=== PATIENT | female | born 1995 | race Caucasian/White ===

== ENCOUNTER 2022-11-27 17:24 | Emergency (ER) | payer BC, SELFPAY ==
--- NOTE | ~2022-11-27 | CT_ITS ---
EXAMINATION: CT ABDOMEN AND PELVIS WITH CONTRAST CLINICAL INFORMATION: Abdominal pain. COMPARISON: Correlation made with pelvic ultrasound performed 11/27/2022 TECHNIQUE: Multidetector volumetric images were obtained from the superior aspect of the liver through the pubic symphysis following administration 85 mL of Omnipaque 350 intravenous contrast. Sagittal and coronal reformatted images were obtained on the technologist's workstation. Oral contrast: None. This CT examination was performed using dose optimization techniques as appropriate, variously including the following: *Automated exposure control *Adjustment of mA and/or kV according to patient size (this includes techniques or standardized protocols for targeted exams where dose is matched to indication/reason for exam; i.e. extremities or head) *Use of iterative reconstruction technique DLP: 332 mGy-cm FINDINGS: LUNG BASES: The visualized lung bases are unremarkable. LIVER, GALLBLADDER, AND BILIARY TREE: The liver is normal in size, shape, and attenuation. No focal hepatic lesion or biliary ductal dilatation is present. The gallbladder is unremarkable with no evidence of radiopaque gallstones, gallbladder wall thickening, or obvious pericholecystic inflammatory changes. PANCREAS: Unremarkable. SPLEEN: Unremarkable. ADRENAL GLANDS: Unremarkable. KIDNEYS AND URETERS: The kidneys are normal in size, shape, and attenuation. No hydronephrosis, hydroureter, or calculi seen. No perinephric stranding. BLADDER: Unremarkable. GASTROINTESTINAL TRACT: The small and large bowel are unremarkable. The appendix is unremarkable. ABDOMINAL WALL: No significant hernia is appreciated. LYMPH NODES: Normal. VASCULAR: Unremarkable. PELVIC VISCERA: There is a 2.9 cm low-density structure within the right adnexa. Right ovary appears to be enlarged measuring nearly 6 cm. OSSEOUS STRUCTURES: Unremarkable. CT/CT abdomen pelvis w IV con IMPRESSION: 2.9 cm low-density structure associated with the right ovary likely a cyst. The right ovary appears to be enlarged measuring nearly 6 cm in maximum diameter of uncertain significance. This was seen on ultrasound performed on the same day. Fleischner guidelines were followed.
--- NOTE | ~2022-11-27 | US_ITS ---
EXAMINATION: US PELVIS CLINICAL INFORMATION: Pelvic pain and cramping with history of ovarian cyst COMPARISON: None available. TECHNIQUE: Ultrasound of the pelvis is performed using both transabdominal and transvaginal transducers along with Doppler. Transvaginal imaging is performed due to inadequate visualization transabdominally. FINDINGS: Uterus: The uterus is retroverted and measures 6.9 x 4.1 x 4.0 cm. The double wall endometrial thickness is 7 mm. The uterus is smooth in contour and has normal myometrial echogenicity. No visible fibroid. Adnexa: Both ovaries are visualized. There is normal color flow to the adnexa. There is no ovarian torsion. There is no pelvic ascites or fluid collection. Right ovary measures 7.4 x 6.2 x 4.5 cm for a volume of 108 mL and contains a large 2.5 x 2.5 x 2.5 cm cyst. Left ovary measures 3.4 x 1.9 x 2.3 cm for a volume of 8 mL and appears unremarkable. US/US pelvic and transvaginal IMPRESSION: 1. The right ovary is significantly larger than the left and contains a 2.5 cm simple right ovarian cyst for which no follow-up is needed. 2. No evidence of ovarian torsion. 3. No other abnormality is seen.
--- NOTE | 2022-11-27 17:34 | ED_ITS ---
HPI - Abdominal Pain General Chief Complaint: Abdominal Pain Stated Complaint: Abdominal pain, back pain Time Seen by Provider: 11/27/22 17:32 History of Present Illness HPI narrative: Patient is a 27-year-old female who presents emergency department for evaluation of abdominal pain with sudden onset approximately 6 hours prior to arrival. Endorses it to feel consistent with severe menstrual cramping/labor pain and radiating to the lateral sides of the abdomen. She has trialed management with ibuprofen 800 mg, acetaminophen 1000 mg in addition to Midol without any change in her pain. Denies any history of similar pain in the past. Endorses a history of ovarian cysts but have been asymptomatic. Denies dysuria, urinary frequency/urgency/hesitancy, abnormal vaginal discharge, recent of normal vaginal bleeding, denies concern for sexually transmitted infections. Denies possibility of , last menstrual period was 2 weeks ago, she is currently in a same gender relationship, endorses a miscarriage 1 year ago as a surrogate. Denies upper abdominal pain, nausea, vomiting, diarrhea, constipation. Endorses a past history of urinary tract infection/pyelonephritis but states that this feels different. Related Data Previous Rx's Medication Instructions Recorded ketorolac 10 mg tablet 10 mg PO Q6H PRN pain 4 days #14 11/28/22 tabs morphine 15 mg immediate release 15 mg PO Q8H PRN pain #10 tabs 11/28/22 tablet Allergies Allergy/AdvReac Type Severity Reaction Status Date / Time amoxicillin Allergy Rash Verified 11/27/22 18:29 dicyclomine [From Bentyl] Allergy Hives Verified 11/27/22 18:29 Review of Systems Review of Systems Yes all other systems are reviewed and are negative [facility] Past Medical History Attestation statement: The following information was validated with the patient. Source: old records reviewed Social History Social History Advance Directives: No Advance Directives Information Provided: No Physical Exam ED Vital Signs: Vital Signs - 24 hr 11/27/22 18:37 11/27/22 19:08 11/27/22 20:49 Temperature 97.9 F 97.4 F Pulse Rate 68 78 Respiratory Rate 14 18 16 Blood Pressure 113/90 H 92/57 L Pulse Oximetry 100 100 Oxygen Delivery Method Room Air Room Air 11/28/22 00:13 11/28/22 01:26 Temperature Pulse Rate 67 76 Respiratory Rate 16 16 Blood Pressure 120/78 112/64 Pulse Oximetry 98 100 Oxygen Delivery Method Room Air Room Air BMI result Body Mass Index 20.1 Appearance: Alert.?Oriented to person, place and time. No acute distress.?Normal affect. Eyes: Pupils equal, round and reactive to light.? ENT: Pharynx normal.?? Neck: Normal inspection.? Neck supple.?? CVS: Heart sounds normal. Normal heart rate and rhythm.? Pulses normal.?? Respiratory: No respiratory distress.? Lung sounds clear to auscultation bilaterally?? Abdomen: Soft and non-tender. No rebound tenderness. No guarding. No CVA tenderness. Normoactive bowel sounds. Skin: Skin warm and dry.? Normal skin color.? Extremities: No lower extremity edema.? Neuro: Moves all extremities spontaneously. Sensation intact bilaterally. Ambulates with normal steady gait. Course Reevaluation(s) Reevaluation #1: Pelvic ultrasound revealing an enlarged right ovary with large cyst, no evidence of ovarian torsion, known ovarian cyst as per patient though she is unaware of the previous size. She continues to have severe pain 10/10. Patient received morphine IV, and CT of the abdomen and pelvis for further evaluation. Reevaluation #2: CT of the abdomen and pelvis consistent with findings from ultrasound, no additional acute abnormalities. I reviewed these findings at length with patient. Discussed plan of care for discharge home, pain management, outpatient follow-up with roustabout hand. Reviewed worrisome signs and symptoms that would warrant re-evaluation in the emergency department. All questions were answered. Time: 23:52 Medical Decision Making Medical Decision Making MDM Narrative: Patient is a 27-year-old female presenting to emergency department for evaluation of abdominal pain as per HPI. The time my examination she is overall well-appearing but does seem to do and discomfort, she is nontoxic, afebrile. Abdominal examination is benign, no CVA tenderness or lumbar region tenderness. Will obtain CBC to evaluate for leukocytosis/ anemia, CMP and lipase to evaluate for abnormal electrolytes /abnormal renal function/ abnormal hepatic/biliary function, pelvic ultrasound and Urinalysis. Differential Diagnosis Differential Diagnoses: The differential diagnosis associated with the presentation includes (Urinary tract infection, pyelonephritis, ureteral calculi, muscular strain, ovarian cyst, PID. Less likely diverticulitis, appendicitis, colitis) Admission/Observation Consideration of admission/observation: Escalation of care including admission/observation considered (See course narrative for further detail) Lab Data MDM Lab Attestation statement: I reviewed the patient's lab results. CBC is without leukocytosis, normocytic anemia not needing transfusion criteria. Overall unremarkable CMP. Urinalysis without evidence of infection or microscopic hematuria. 11/27/22 18:21 11/27/22 18:21 Labs: Lab Results 11/27/22 11/27/22 Range/Units 18:21 21:44 WBC 10.3 (4.8-10.8) X10*3/uL RBC 4.17 L (4.20-5.50) X10*6/uL Hgb 11.9 L (12.0-16.0) g/dl Hct 35.4 L (37.0-47.0) % MCV 84.9 (80.0-98.0) fL MCH 28.5 (27.0-33.0) pg MCHC 33.6 (31.0-35.0) g/dl RDW 14.0 (11.0-16.0) % Plt Count 329 (160-400) X10*3/uL MPV 10.1 (9.4-12.3) fL Immature Gran % (Auto) 0.3 (0.0-0.4) % Neut % (Auto) 68.7 (45-73) % Lymph % (Auto) 24.3 (20-40) % [place] % (Auto) 5.0 (2-11) % Eos % (Auto) 0.8 (0-4) % Baso % (Auto) 0.9 (0-2) % Lymph # (Auto) 2.5 (1.2-4.9) X10*3/uL [place] # (Auto) 0.5 (0.1-1.2) X10*3/uL Eos # (Auto) 0.1 (0.0-0.4) X10*3/uL Baso # (Auto) 0.1 (0.0-0.2) X10*3/uL Abs Immat Gran (auto) 0.03 (0.00-0.03) X10*3/uL Absolute Neuts (auto) 7.1 (2.0-8.3) x10*3/uL Absolute Nucleated RBC 0.000 (0.0-0.012) X10*3/uL Nucleated RBC % (auto) 0.0 (0.0-0.2) /100WBC Sodium 138 (135-145) mmol/L Potassium 3.3 (3.3-5.1) mmol/L Chloride 105 (96-108) mmol/L Carbon Dioxide 23 (22-29) mmol/L Anion Gap 13 (12-20) BUN 12 (9-16) mg/dL Creatinine 0.77 (0.5-1.4) mg/dL Estim Creat Clear Calc 91.1 Estimated GFR > 60 Random Glucose 82 (60-115) mg/dL Calcium 9.5 (8.4-10.2) mg/dL Magnesium 1.9 (1.6-2.6) mg/dL Total Bilirubin 0.7 (0.0-1.0) mg/dL AST 15 (5-31) U/L ALT 7 (0-31) U/L Alkaline Phosphatase 35 L (39-117) U/L Total Protein 7.4 (6.5-8.0) g/dL Albumin 4.2 (3.5-5.0) g/dL Lipase 18 (8-78) U/L Urine Color Yellow Urine Appearance Clear Urine pH 6.5 (5.0-9.0) Ur Specific [place] 1.015 (1.005-1.025) Urine Protein Negative (Neg-Trace) mg/dL Urine Glucose (UA) Negative (Negative) mg/dL Urine Ketones 40 (Negative) mg/dL Urine Blood Negative (Negative) Urine Nitrite Negative (Negative) Ur Leukocyte Esterase Negative (Negative) Urine Test NEGATIVE (NEGATIVE) Radiology Impression Discussion of test interpretation with radiology: I have reviewed the radiologist's reading. Radiologist Impression: CT/CT abdomen pelvis w IV con IMPRESSION: 2.9 cm low-density structure associated with the right ovary likely a cyst. The right ovary appears to be enlarged measuring nearly 6 cm in maximum diameter of uncertain significance. This was seen on ultrasound performed on the same day. US/US pelvic and transvaginal IMPRESSION: 1. The right ovary is significantly larger than the left and contains a 2.5 cm simple right ovarian cyst for which no follow-up is needed. 2. No evidence of ovarian torsion. 3. No other abnormality is seen. External Record Review External record reviewed: Other ([employer] reviewed, no conflicts) Medications Administered Discontinued Medications Generic Name Dose Route Start Last Admin Trade Name Emilie PRN Reason Stop Dose Admin Sodium Chloride 1,000 mls @ 999 mls/hr 11/27/22 19:15 11/27/22 20:33 Ns IV 11/27/22 20:15 Infused .Q1H1M TELMA Infusion Iohexol 100 ml 11/27/22 22:47 11/27/22 22:50 Iohexol 350 Mg/Ml 100 Ml Infus..Btl IV 11/27/22 22:48 85 ml ONCE ONE Administration Ketorolac Tromethamine 30 mg 11/27/22 18:57 11/27/22 19:11 Ketorolac Tromethamine 30 Mg/Ml Vial IVPUSH 11/27/22 18:58 30 mg ONCE ONE Administration Ketorolac Tromethamine 30 mg 11/28/22 00:34 11/28/22 00:56 Ketorolac Tromethamine 30 Mg/Ml Vial IVPUSH 11/28/22 00:35 30 mg ONCE ONE Administration Morphine Sulfate 4 mg 11/27/22 19:04 11/27/22 19:08 Morphine Sulfate 4 Mg/Ml Cartridge IVPUSH 11/27/22 19:05 4 mg ONCE ONE Administration Protocol Ondansetron HCl 4 mg 11/27/22 18:57 11/27/22 19:11 Ondansetron Hcl 4 Mg/2 Ml Vial IVPUSH 11/27/22 18:58 4 mg ONCE ONE Administration Discharge Plan Discharge Clinical Impression: Abdominal pain, Ovarian cyst Patient Disposition: Home, Self-Care Additional Instructions: As discussed, your ultrasound and CT scan reveal that your right ovary is enlarged and there is a large right ovarian cyst, there is no evidence of torsion which is very reassuring. Your blood work is overall normal, you are mildly anemic. Your urine does not show any evidence of infection or blood. I have sent a prescription for the ketorolac to your pharmacy, please see this as instructed for pain. In addition, I have sent a short prescription for morphine to your pharmacy as well. This is a narcotic medication, you should not drive, drink alcohol, or work while taking this medication. These medications can be addictive, please only use this for severe pain is unrelieved with ketorolac. Please contact your roustabout hand provider to arrange for further follow-up. You may return back to emergency department with any new or worsening symptoms or concerns. Prescriptions: New ketorolac 10 mg tablet 10 mg PO Q6H PRN (Reason: pain) 4 Days Qty: 14 0RF morphine 15 mg tablet 15 mg PO Q8H PRN (Reason: pain) Qty: 10 0RF Rx Instructions: Partial Fill upon patient request. Referrals: Jacob Keith MD [Physician] - Stand Alone Forms: Work/School Release Interventions: ED Discharge Assessment Last Done: 11/28/22 01:31 Discharge Date/Time: 11/28/22 01:43
[2022-11-27 18:29] LABS: MANUAL DIFF FLAG NO
[2022-11-27 18:30] VITALS: BMI 20.1
[2022-11-27 18:30] LABS: Basophils Absolute Auto 0.1 X10*3/uL (0.0-0.2); Basophils Percent Auto 0.9 % (0-2); Eosinophils Absolute Auto 0.1 X10*3/uL (0.0-0.4); Eosinophils Percent Auto 0.8 % (0-4); Hematocrit 35.4 % (37.0-47.0); Hemoglobin 11.9 g/dl (12.0-16.0); Imm Gran Abs Auto 0.03 X10*3/uL (0.00-0.03); Imm Gran Pct Auto 0.3 % (0.0-0.4); Lymphocytes Absolute Auto 2.5 X10*3/uL (1.2-4.9); Lymphocytes Percent Auto 24.3 % (20-40); Mean Corpuscular HGB Conc 33.6 g/dl (31.0-35.0); Mean Corpuscular Hemoglobin 28.5 pg (27.0-33.0); Mean Corpuscular Volume 84.9 fL (80.0-98.0); Mean Platelet Volume 10.1 fL (9.4-12.3); Monocytes Absolute Auto 0.5 X10*3/uL (0.1-1.2); Neutrophils Absolute Auto 7.1 x10*3/uL (2.0-8.3); Neutrophils Percent Auto 68.7 % (45-73); Platelet Count 329 X10*3/uL (160-400); Red Blood Count 4.17 X10*6/uL (4.20-5.50); White Blood Count 10.3 X10*3/uL (4.8-10.8)
[2022-11-27 18:37] VITALS: BP 113/90; PULSE 68; RESP 14; TEMP 36.6; O2SAT 100
[2022-11-27 18:46] LABS: Alanine Aminotransferase 7 U/L (0-31); Albumin Level 4.2 g/dL (3.5-5.0); Alkaline Phosphatase 35 U/L (39-117); Anion Gap 13 (12-20); Aspartate Amino Transferase 15 U/L (5-31); Bilirubin Total 0.7 mg/dL (0.0-1.0); Blood Urea Nitrogen 12 mg/dL (9-16); Calcium 9.5 mg/dL (8.4-10.2); Carbon Dioxide 23 mmol/L (22-29); Chloride 105 mmol/L (96-108); Creatinine Clr Calc Pharmacy 91.1; Estimated Glomerular Filt Rate > 60; Glucose Random 82 mg/dL (60-115); Lipase 18 U/L (8-78); Magnesium 1.9 mg/dL (1.6-2.6); Potassium 3.3 mmol/L (3.3-5.1); Sodium 138 mmol/L (135-145); Total Protein 7.4 g/dL (6.5-8.0)
[2022-11-27 19:08] VITALS: RESP 18
[2022-11-27] MEDS: Morphine Sulfate 4 MG/ML CARTRIDGE IVPUSH (19:08)
[2022-11-27] MEDS: ondansetron HCL 4 MG/2 ML VIAL IVPUSH (19:11)
[2022-11-27] MEDS: Ketorolac Tromethamine 30 MG/ML VIAL IVPUSH (19:11)
[2022-11-27] MEDS: 0.9 % Sodium Chloride 1,000 ML 999 ML IV (19:17)
[2022-11-27 20:49] VITALS: BP 92/57; PULSE 78; RESP 16; TEMP 36.3; O2SAT 100
--- NOTE | 2022-11-27 21:00 | PC.NURSE ---
calm, sleeping. reported pain decreased s/p rx. +CMS.
[2022-11-27 21:55] LABS: Appearance Urine Clear; Color Urine Yellow; Glucose Urine UA Negative (Negative); Leukocyte Esterase Urine Negative (Negative); Nitrite Urine Negative (Negative); PH 6.5 (5.0-9.0); Specific Gravity - Urine 1.015 (1.005-1.025); Urine Blood Negative (Negative); Urine Ketones 40 mg/dL (Negative); Urine Protein Negative (Neg-Trace)
[2022-11-27 21:56] LABS: UPreg QC Valid YES; Urine Pregnancy NEGATIVE (NEGATIVE)
[2022-11-27] MEDS: iohexoL 350 MG/ML 100 ML INFUS..BTL IV (22:50)
[2022-11-28 00:13] VITALS: BP 120/78; PULSE 67; RESP 16; O2SAT 98
[2022-11-28] MEDS: Ketorolac Tromethamine 30 MG/ML VIAL IVPUSH (00:56)
[2022-11-28 01:26] VITALS: BP 112/64; PULSE 76; RESP 16; O2SAT 100
== END 2022-11-28 01:43 | disposition home or self-care (01) ==
PROVIDERS: Nurse Practitioner Family; Emergency Provider Emergency Medicine
DX: N83.201 Unspecified ovarian cyst, right side (principal); R10.2 Pelvic and perineal pain; M54.50 Low back pain, unspecified; R25.2 Cramp and spasm; Z79.899 Other long term (current) drug therapy
CPT/HCPCS: 36415; 74177; 76830; 76856; 80053; 81003; 81025; 83690; 83735; 85025; 96361; 96374; 96375; 96376; 99284; J1885; J2270; J2405; Q9967